=== PATIENT | male | born 1995 | race Two or more races ===

== ENCOUNTER → 2023-07-16 | Emergency (ER) | payer MEDICAID ==
[~2023-07-16] VITALS: Ht 182.9 cm; Wt 90.7 kg
[~2023-07-16] MED LIST: LORAZEPAM 0.5 MG TABLET PO ONE; LORAZEPAM 1 MG TABLET ONE
[2023-07-16 04:09] VITALS: O2SAT 95
== END | disposition home or self-care (01) ==
LOC: ER 04:07
DX: F41.9 Anxiety disorder, unspecified (principal)
CPT/HCPCS: A4663